=== PATIENT | male | born 1965 | race African-American/Black ===

== ENCOUNTER 2023-03-02 21:28 | Inpatient (IN) | payer OTHER ==
[2023-03-02 22:22] VITALS: BMI 20.6
[2023-03-02] MEDS ORDERED: ACETAMINOPHEN 325 MG TABLET (FP) PO PRN (23:13)
[2023-03-02] MEDS ORDERED: LOPERAMIDE HCL 2 MG CAPSULE PO PRN (23:13)
[2023-03-02] MEDS ORDERED: BENZOCAINE/MENTHOL (CHLORASEPTIC ) LOZENGE MM PRN (23:13)
[2023-03-02] MEDS ORDERED: COLLOIDAL OATMEAL 1 BAR EACH TP PRN (23:13)
[2023-03-02] MEDS ORDERED: BENZONATATE 200 MG CAPSULE PO PRN (23:13)
[2023-03-02] MEDS ORDERED: IBUPROFEN 400 MG TABLET (FP) PO PRN (23:13)
[2023-03-02] MEDS ORDERED: NALOXONE HCL 0.4 MG/ML VIAL IM PRN (23:13)
[2023-03-02] MEDS ORDERED: IBUPROFEN 600 MG TABLET (FP) PO PRN (23:13)
[2023-03-02] MEDS ORDERED: NICOTINE POLACRILEX 2 MG GUM BUC PRN (23:13)
[2023-03-02] MEDS ORDERED: guaiFENesin 600 MG TABLET.ER (FP) PO PRN (23:13)
[2023-03-02] MEDS ORDERED: NALOXONE HCL (KLOXXADO) 8 MG SPRAY NS PRN (23:13)
[2023-03-02] MEDS ORDERED: POLYETHYLENE GLYCOL (HEALTHYLAX) 3350 17 GM PACKET PO PRN (23:13)
[2023-03-03] MEDS: MELATONIN 5 MG TABLETS PO SCH ×2 (01:51→21:16)
[2023-03-03] MEDS: DOXYCYCLINE HYCLATE 100 MG CAPSULE PO SCH ×2 (10:54→18:37)
[2023-03-03] MEDS: NICOTINE 14 MG/24 HOURS TOPICAL PATCH TD SCH (10:54)
[2023-03-03 12:08] LABS: CHLORIDE 112 mmol/L (98-107); POTASSIUM 3.6 mmol/L (3.5-5.1); SODIUM 142 mmol/L (136-145)
[2023-03-03 12:16] LABS: HEMATOCRIT 33.4 % (35.4-49); HEMOGLOBIN 11.7 GM/dL (11.7-16.9); MCHC 35.1 g/dl (32.0-35.9); MEAN CELL VOLUME 88.4 fl (80-96); MEAN PLT VOLUME 6.7 fl (7.5-11.1); PLATELET COUNT 236 10^3/uL (134-434); RBC 3.78 M/mm3 (4.00-5.60); RDW 13.9 % (11.9-15.9); WHITE BLOOD COUNT 5.1 K/mm3 (4.0-10.0)
[2023-03-03 12:19] LABS: ALBUMIN 2.7 g/dl (3.4-5.0); ANION GAP 5 mmol/L (4-13); BLOOD UREA NITROGEN 21.1 mg/dL (7-18); CO2 25 mmol/L (21-32); GLUCOSE,RANDOM 155 mg/dL (74-106)
[2023-03-03 12:22] LABS: SGOT/AST 22 U/L (15-37); SGPT/ALT 13 U/L (13-61)
[2023-03-03 12:23] LABS: EPI CELLS 4 /uL (0-25.1); HYALINE CASTS 0 /uL (0-3.1); PH,URINE 5.5 (5.0-8.0); URINE APPEARANCE CLEAR; URINE BACTERIA 8 /uL (0-1359); URINE BILIRUBIN NEGATIVE (NEGATIVE); URINE COLOR YELLOW; URINE GLUCOSE (UA) NEGATIVE (NEGATIVE); URINE KETONE TRACE (NEGATIVE); URINE LEUK ESTERASE NEGATIVE (NEGATIVE); URINE NITRITE NEGATIVE (NEGATIVE); URINE PROTEIN 1+ (NEGATIVE); URINE RBC 7 /uL (0-23.9); URINE UROBILINOGEN 0.2 mg/dL (0.2-1.0); URINE WBC 6 /uL (0-25.8)
[2023-03-03 12:23] LABS: BILIRUBIN,TOTAL 0.4 mg/dL (0.2-1); TOT PROT 7.1 g/dl (6.4-8.2)
[2023-03-03 12:24] LABS: ALK PHOS 89 U/L (45-117)
[2023-03-03] MEDS: THIAMINE HCL 100 MG TABLET (FP) PO SCH (21:16)
[2023-03-04] MEDS ORDERED: cloNIDine HCL 0.1 MG TABLET PO ONE (06:55)
[2023-03-04] MEDS: NICOTINE 14 MG/24 HOURS TOPICAL PATCH TD SCH (10:00)
[2023-03-04] MEDS: ASPIRIN COATED 81 MG TABLET.EC PO SCH (10:01)
[2023-03-04] MEDS: DOXYCYCLINE HYCLATE 100 MG CAPSULE PO SCH ×2 (10:01→18:29)
[2023-03-04] MEDS: LISINOPRIL 20 MG TABLET PO SCH (10:01)
[2023-03-04] MEDS: amLODIPine BESYLATE 10 MG TABLET (FP) PO SCH (10:01)
[2023-03-04] MEDS: ABACAVIR/DOLUTEGRAVIR/LAMIVUDI (TRIUMEQ) TABLET PO SCH (10:02)
[2023-03-04] MEDS: MELATONIN 5 MG TABLETS PO SCH (21:17)
[2023-03-04] MEDS: THIAMINE HCL 100 MG TABLET (FP) PO SCH (21:17)
[2023-03-05] MEDS: amLODIPine BESYLATE 10 MG TABLET (FP) PO SCH (09:54)
[2023-03-05] MEDS: ASPIRIN COATED 81 MG TABLET.EC PO SCH (09:54)
[2023-03-05] MEDS: ABACAVIR/DOLUTEGRAVIR/LAMIVUDI (TRIUMEQ) TABLET PO SCH (09:54)
[2023-03-05] MEDS: LISINOPRIL 20 MG TABLET PO SCH (09:54)
[2023-03-05] MEDS: NICOTINE 14 MG/24 HOURS TOPICAL PATCH TD SCH (09:55)
[2023-03-05] MEDS: DOXYCYCLINE HYCLATE 100 MG CAPSULE PO SCH (09:55)
[2023-03-05 14:07] LABS: SYPHILIS W/ RPR CONF NON-REACTIVE (NONREACTIVE)
[2023-03-05] MEDS: DOXYCYCLINE HYCLATE 100 MG TABLET PO SCH (17:10)
[2023-03-05] MEDS: THIAMINE HCL 100 MG TABLET (FP) PO SCH (21:39)
[2023-03-05] MEDS: MELATONIN 5 MG TABLETS PO SCH (21:39)
[2023-03-05] MEDS: BACLOFEN 10 MG TABLET (FP) PO SCH (21:40)
[2023-03-06] MEDS ORDERED: LISINOPRIL 20 MG TABLET PO SCH (10:00)
[2023-03-06] MEDS ORDERED: CALCIUM 500MG/VIT-D 200 UNITS COMBO TABLET (FP) PO SCH (10:00)
[2023-03-06] MEDS: amLODIPine BESYLATE 10 MG TABLET (FP) PO SCH (10:26)
[2023-03-06] MEDS: ASPIRIN COATED 81 MG TABLET.EC PO SCH (10:26)
[2023-03-06] MEDS: DOXYCYCLINE HYCLATE 100 MG TABLET PO SCH ×2 (10:26→18:42)
[2023-03-06] MEDS: NICOTINE 14 MG/24 HOURS TOPICAL PATCH TD SCH (10:27)
[2023-03-06] MEDS: ABACAVIR/DOLUTEGRAVIR/LAMIVUDI (TRIUMEQ) TABLET PO SCH (10:27)
[2023-03-06] MEDS: LISINOPRIL 20 MG TABLET PO SCH (10:27)
[2023-03-06] MEDS: BACLOFEN 10 MG TABLET (FP) PO SCH ×2 (10:27→21:30)
[2023-03-06] MEDS: CALCIUM 500MG/VIT-D 200 UNITS COMBO TABLET (FP) PO SCH (10:35)
[2023-03-06 12:40] LABS: MAGNESIUM 1.8 mg/dL (1.8-2.4)
[2023-03-06 12:44] LABS: PHOSPHOROUS 2.7 mg/dL (2.5-4.9)
[2023-03-06] MEDS: MELATONIN 5 MG TABLETS PO SCH (21:30)
[2023-03-06] MEDS: THIAMINE HCL 100 MG TABLET (FP) PO SCH (21:30)
[2023-03-07] MEDS: LISINOPRIL 20 MG TABLET PO SCH (09:42)
[2023-03-07] MEDS: ABACAVIR/DOLUTEGRAVIR/LAMIVUDI (TRIUMEQ) TABLET PO SCH (09:42)
[2023-03-07] MEDS: ASPIRIN COATED 81 MG TABLET.EC PO SCH (09:42)
[2023-03-07] MEDS: DOXYCYCLINE HYCLATE 100 MG TABLET PO SCH ×2 (09:43→18:34)
[2023-03-07] MEDS: CALCIUM 500MG/VIT-D 200 UNITS COMBO TABLET (FP) PO SCH (09:43)
[2023-03-07] MEDS: BACLOFEN 10 MG TABLET (FP) PO SCH ×2 (09:43→21:25)
[2023-03-07] MEDS: NICOTINE 14 MG/24 HOURS TOPICAL PATCH TD SCH (09:43)
[2023-03-07] MEDS: amLODIPine BESYLATE 10 MG TABLET (FP) PO SCH (09:43)
[2023-03-07] MEDS: THIAMINE HCL 100 MG TABLET (FP) PO SCH (21:25)
[2023-03-07] MEDS: MELATONIN 5 MG TABLETS PO SCH (21:25)
[2023-03-08] MEDS: ASPIRIN COATED 81 MG TABLET.EC PO SCH (09:52)
[2023-03-08] MEDS: LISINOPRIL 20 MG TABLET PO SCH (09:52)
[2023-03-08] MEDS: BACLOFEN 10 MG TABLET (FP) PO SCH ×2 (09:52→21:15)
[2023-03-08] MEDS: ABACAVIR/DOLUTEGRAVIR/LAMIVUDI (TRIUMEQ) TABLET PO SCH (09:52)
[2023-03-08] MEDS: amLODIPine BESYLATE 10 MG TABLET (FP) PO SCH (09:53)
[2023-03-08] MEDS: DOXYCYCLINE HYCLATE 100 MG TABLET PO SCH ×2 (09:53→18:34)
[2023-03-08] MEDS: NICOTINE 14 MG/24 HOURS TOPICAL PATCH TD SCH (11:02)
[2023-03-08] MEDS: CALCIUM 500MG/VIT-D 200 UNITS COMBO TABLET (FP) PO SCH (11:02)
[2023-03-08] MEDS: MELATONIN 5 MG TABLETS PO SCH (21:15)
[2023-03-08] MEDS: THIAMINE HCL 100 MG TABLET (FP) PO SCH (21:15)
[2023-03-09] MEDS: CALCIUM 500MG/VIT-D 200 UNITS COMBO TABLET (FP) PO SCH (09:58)
[2023-03-09] MEDS: BACLOFEN 10 MG TABLET (FP) PO SCH ×2 (09:58→21:05)
[2023-03-09] MEDS: amLODIPine BESYLATE 10 MG TABLET (FP) PO SCH (09:58)
[2023-03-09] MEDS: ABACAVIR/DOLUTEGRAVIR/LAMIVUDI (TRIUMEQ) TABLET PO SCH (09:58)
[2023-03-09] MEDS: LISINOPRIL 20 MG TABLET PO SCH (09:59)
[2023-03-09] MEDS: ASPIRIN COATED 81 MG TABLET.EC PO SCH (09:59)
[2023-03-09] MEDS: DOXYCYCLINE HYCLATE 100 MG TABLET PO SCH ×2 (09:59→18:55)
[2023-03-09] MEDS: NICOTINE 14 MG/24 HOURS TOPICAL PATCH TD SCH (10:00)
[2023-03-09] MEDS: MELATONIN 5 MG TABLETS PO SCH (21:05)
[2023-03-09] MEDS: THIAMINE HCL 100 MG TABLET (FP) PO SCH (21:05)
[2023-03-10] MEDS: amLODIPine BESYLATE 10 MG TABLET (FP) PO SCH (09:57)
[2023-03-10] MEDS: BACLOFEN 10 MG TABLET (FP) PO SCH ×2 (09:57→21:36)
[2023-03-10] MEDS: ASPIRIN COATED 81 MG TABLET.EC PO SCH (09:57)
[2023-03-10] MEDS: CALCIUM 500MG/VIT-D 200 UNITS COMBO TABLET (FP) PO SCH (09:58)
[2023-03-10] MEDS: NICOTINE 14 MG/24 HOURS TOPICAL PATCH TD SCH (09:58)
[2023-03-10] MEDS: ABACAVIR/DOLUTEGRAVIR/LAMIVUDI (TRIUMEQ) TABLET PO SCH (09:58)
[2023-03-10] MEDS: LISINOPRIL 20 MG TABLET PO SCH (09:58)
[2023-03-10] MEDS: MELATONIN 5 MG TABLETS PO SCH (21:36)
[2023-03-10] MEDS: THIAMINE HCL 100 MG TABLET (FP) PO SCH (21:36)
[2023-03-11] MEDS: BACLOFEN 10 MG TABLET (FP) PO SCH ×2 (10:17→21:21)
[2023-03-11] MEDS: amLODIPine BESYLATE 10 MG TABLET (FP) PO SCH (10:17)
[2023-03-11] MEDS: ASPIRIN COATED 81 MG TABLET.EC PO SCH (10:17)
[2023-03-11] MEDS: ABACAVIR/DOLUTEGRAVIR/LAMIVUDI (TRIUMEQ) TABLET PO SCH (10:17)
[2023-03-11] MEDS: LISINOPRIL 20 MG TABLET PO SCH (10:17)
[2023-03-11] MEDS: CALCIUM 500MG/VIT-D 200 UNITS COMBO TABLET (FP) PO SCH (10:19)
[2023-03-11] MEDS: NICOTINE 14 MG/24 HOURS TOPICAL PATCH TD SCH (10:19)
[2023-03-11] MEDS: MELATONIN 5 MG TABLETS PO SCH (21:20)
[2023-03-11] MEDS: THIAMINE HCL 100 MG TABLET (FP) PO SCH (21:21)
[2023-03-12] MEDS: BACLOFEN 10 MG TABLET (FP) PO SCH ×2 (10:01→21:15)
[2023-03-12] MEDS: ABACAVIR/DOLUTEGRAVIR/LAMIVUDI (TRIUMEQ) TABLET PO SCH (10:01)
[2023-03-12] MEDS: ASPIRIN COATED 81 MG TABLET.EC PO SCH (10:01)
[2023-03-12] MEDS: amLODIPine BESYLATE 10 MG TABLET (FP) PO SCH (10:01)
[2023-03-12] MEDS: CALCIUM 500MG/VIT-D 200 UNITS COMBO TABLET (FP) PO SCH (10:01)
[2023-03-12] MEDS: NICOTINE 14 MG/24 HOURS TOPICAL PATCH TD SCH (10:01)
[2023-03-12] MEDS: LISINOPRIL 20 MG TABLET PO SCH (10:01)
[2023-03-12] MEDS: MELATONIN 5 MG TABLETS PO SCH (21:15)
[2023-03-12] MEDS: THIAMINE HCL 100 MG TABLET (FP) PO SCH (21:15)
[2023-03-13] MEDS: CALCIUM 500MG/VIT-D 200 UNITS COMBO TABLET (FP) PO SCH (10:07)
[2023-03-13] MEDS: ABACAVIR/DOLUTEGRAVIR/LAMIVUDI (TRIUMEQ) TABLET PO SCH (10:07)
[2023-03-13] MEDS: LISINOPRIL 20 MG TABLET PO SCH (10:08)
[2023-03-13] MEDS: ASPIRIN COATED 81 MG TABLET.EC PO SCH (10:08)
[2023-03-13] MEDS: HYDROCHLOROTHIAZIDE 12.5 MG CAPSULE (FP) PO SCH (10:08)
[2023-03-13] MEDS: amLODIPine BESYLATE 10 MG TABLET (FP) PO SCH (10:08)
[2023-03-13] MEDS: BACLOFEN 10 MG TABLET (FP) PO SCH ×2 (10:09→21:22)
[2023-03-13] MEDS: NICOTINE 14 MG/24 HOURS TOPICAL PATCH TD SCH (10:09)
[2023-03-13] MEDS: THIAMINE HCL 100 MG TABLET (FP) PO SCH (21:22)
[2023-03-13] MEDS: MELATONIN 5 MG TABLETS PO SCH (21:22)
[2023-03-14] MEDS: LISINOPRIL 20 MG TABLET PO SCH (10:06)
[2023-03-14] MEDS: CALCIUM 500MG/VIT-D 200 UNITS COMBO TABLET (FP) PO SCH (10:06)
[2023-03-14] MEDS: ASPIRIN COATED 81 MG TABLET.EC PO SCH (10:06)
[2023-03-14] MEDS: NICOTINE 14 MG/24 HOURS TOPICAL PATCH TD SCH (10:06)
[2023-03-14] MEDS: HYDROCHLOROTHIAZIDE 12.5 MG CAPSULE (FP) PO SCH (10:06)
[2023-03-14] MEDS: BACLOFEN 10 MG TABLET (FP) PO SCH ×2 (10:06→21:01)
[2023-03-14] MEDS: amLODIPine BESYLATE 10 MG TABLET (FP) PO SCH (10:06)
[2023-03-14] MEDS: ABACAVIR/DOLUTEGRAVIR/LAMIVUDI (TRIUMEQ) TABLET PO SCH (10:06)
[2023-03-14] MEDS: THIAMINE HCL 100 MG TABLET (FP) PO SCH (21:01)
[2023-03-14] MEDS: MELATONIN 5 MG TABLETS PO SCH (21:01)
[2023-03-15] MEDS: HYDROCHLOROTHIAZIDE 12.5 MG CAPSULE (FP) PO SCH (09:49)
[2023-03-15] MEDS: BACLOFEN 10 MG TABLET (FP) PO SCH ×2 (09:49→21:19)
[2023-03-15] MEDS: CALCIUM 500MG/VIT-D 200 UNITS COMBO TABLET (FP) PO SCH (09:49)
[2023-03-15] MEDS: amLODIPine BESYLATE 10 MG TABLET (FP) PO SCH (09:50)
[2023-03-15] MEDS: NICOTINE 14 MG/24 HOURS TOPICAL PATCH TD SCH (09:50)
[2023-03-15] MEDS: ABACAVIR/DOLUTEGRAVIR/LAMIVUDI (TRIUMEQ) TABLET PO SCH (09:50)
[2023-03-15] MEDS: ASPIRIN COATED 81 MG TABLET.EC PO SCH (09:50)
[2023-03-15] MEDS: LISINOPRIL 20 MG TABLET PO SCH (09:50)
[2023-03-15] MEDS: THIAMINE HCL 100 MG TABLET (FP) PO SCH (21:19)
[2023-03-15] MEDS: MELATONIN 5 MG TABLETS PO SCH (21:19)
[2023-03-16 07:05] VITALS: TEMP 97.8
[2023-03-16] MEDS: CALCIUM 500MG/VIT-D 200 UNITS COMBO TABLET (FP) PO SCH (09:32)
[2023-03-16] MEDS: ABACAVIR/DOLUTEGRAVIR/LAMIVUDI (TRIUMEQ) TABLET PO SCH (09:32)
[2023-03-16] MEDS: LISINOPRIL 20 MG TABLET PO SCH (09:32)
[2023-03-16] MEDS: amLODIPine BESYLATE 10 MG TABLET (FP) PO SCH (09:32)
[2023-03-16 09:33] VITALS: BP 115/76; PULSE 83; RESP 16
[2023-03-16] MEDS: HYDROCHLOROTHIAZIDE 12.5 MG CAPSULE (FP) PO SCH (09:33)
[2023-03-16] MEDS: NICOTINE 14 MG/24 HOURS TOPICAL PATCH TD SCH (09:33)
[2023-03-16] MEDS: ASPIRIN COATED 81 MG TABLET.EC PO SCH (09:33)
[2023-03-16] MEDS: BACLOFEN 10 MG TABLET (FP) PO SCH (09:33)
== END 2023-03-16 09:43 | disposition home or self-care (01) | DRG 772 ==
LOC: YASAS 21:28 → Y3W 03-03 01:04
PROVIDERS: ADMIT Allergy & Immunology; ATTEND Psychiatry & Neurology Pain Medicine
PROC: HZ42ZZZ Group Counseling for Substance Abuse Treatment, Cognitive-Behavioral (ICD-10-PCS; principal; 2023-03-02)
DX: F10.20 Alcohol dependence, uncomplicated (principal); F14.20 Cocaine dependence, uncomplicated; F17.210 Nicotine dependence, cigarettes, uncomplicated; F19.24 Other psychoactive substance dependence with psychoactive substance-induced mood disorder; Z21 Asymptomatic human immunodeficiency virus [HIV] infection status; E72.20 Disorder of urea cycle metabolism, unspecified; I10 Essential (primary) hypertension; E83.51 Hypocalcemia; E78.5 Hyperlipidemia, unspecified
CPT/HCPCS: 36415; 80053; 80307; 81003; 82140; 82652; 83036; 83735; 84100; 85027; 86780; 86803; 87635; J0475